=== PATIENT | female | born 1990 | race Caucasian/White ===

== ENCOUNTER 2017-05-15 13:50 | Inpatient (IN) | payer OTHER ==
[2017-05-15] MEDS ORDERED: Tranexamic Acid 1,000 MG in Sodium Chloride 0.9% 100 ML IV PRN (14:34)
[2017-05-15] MEDS ORDERED: Lactated Ringers 500 ML IV ONE (14:34)
[2017-05-15] MEDS ORDERED: Carboprost Tromethamine 250 MCG/1 ML Amp IM PRN (14:34)
[2017-05-15] MEDS ORDERED: Misoprostol 50 MCG (1/2 of 100 MCG) Tab VAG PRN (14:34)
[2017-05-15] MEDS ORDERED: Acetaminophen 325 MG Tab PO PRN (14:34)
[2017-05-15] MEDS ORDERED: Methylergonovine 0.2 MG/1 ML Amp IM PRN (14:34)
[2017-05-15] MEDS ORDERED: Ondansetron 4 MG/2 ML SDV IV PRN (14:34)
[2017-05-15] MEDS ORDERED: Misoprostol 400 MCG (4 X 100 MCG TAB) RECTAL PRN (14:34)
[2017-05-15] MEDS ORDERED: Lidocaine 1% 30 ML SDV INJECT PRN (14:34)
[2017-05-15] MEDS ORDERED: Sodium Chloride 0.9% 10 ML Syringe FLUSH PRN (14:34)
[2017-05-15] MEDS ORDERED: Lactated Ringers 1,000 ML IV SCH (14:45)
[2017-05-15] MEDS ORDERED: Bupivacaine 0.75%/D5W 2 ML Amp ONE (22:40)
[2017-05-15] MEDS ORDERED: fentaNYL 100 MCG/2 ML SDV ONE (22:40)
[2017-05-15] MEDS ORDERED: EPINEPHrine 1 MG/ML SDV ONE (22:41)
[2017-05-15] MEDS ORDERED: Oxytocin/Normal Saline 30 UNIT/500 ML BAG IV SCH (23:00)
--- NOTE | 2017-05-15 23:08 | PCM.SN ---
- Free Text/Narrative Note: Intrathecal. Sitting position, sterile prep and drape. 1% lidocaine w bicarb for skinwheal to L3 L4 interspace, introducer, 25 ga pencan x 2. Pos CSF, neg heme, neg parasthesia. 1:1000 pf epi wash, 15 mcg pf sufenta, 35 mcg pf fentanyl , 0.4 ml pf ns and 6 mg of 0.75% pf bupivacaine injected after CSF aspiration. Pt to L lateral side. Procedure time 2240 to 2320.
[2017-05-16] MEDS ORDERED: Benzocaine/Menthol 20%-0.5% Spray 56 GM Canister TOP PRN (01:48)
[2017-05-16] MEDS ORDERED: Zolpidem 5 MG Tab PO PRN (01:48)
[2017-05-16] MEDS ORDERED: Simethicone 80 MG Tab.Chew PO PRN (01:48)
[2017-05-16] MEDS ORDERED: Oxytocin 10 Units/1 ML SDV IM PRN (01:48)
--- NOTE | 2017-05-16 02:01 | PCM.DEL ---
L & D Note - Delivery Note Provider: Tonny Ragland Vacuum Extractor Progress Note - Alternative Labor Strategies Considered Alternative Labor Strategies Considered:: Reports: Yes Strategies Considered:: Reports: Contraction Intensity Adequate, Position Changes Used to Facilitate Rotation & Descent, Empty Bladder, Rest Indications Considered:: Reports: Yes Indications:: Reports: Suspicion of Immediate or Potential Compromise Time Out:: Reports: Yes - Patient Prepared Patient Prepared:: Reports: Yes Informed Consent:: Reports: Yes, Verbal Risks: Reports: Yes Risks Include:: Reports: Laceration, Shoulder Dystocia, Maternal Injury, Other Anesthesia/Analgesia Adequate:: Reports: Yes - Probability of Success High Probability of Success:: Reports: Yes Weight Estimated:: Reports: AGA Patient Diabetic:: Reports: No Pelvis Adequate:: Reports: Yes Asynclitic:: Reports: No - Application Time Maximum Application Time & Number of Pop-Offs Predetermined:: Reports: Yes Number of Times Cup Disengaged:: 0 (see nurses notes for further details) Vacuum Extraction: Successful - Exit Strategy Exit strategy available:: Reports: Yes and resuscitation teams readily available:: Reports: Yes (used smaller kiwi vacuume) - Patient Data Vitals - Most Recent: Last Vital Signs Temp 99.0 F 05/15/17 22:35 Pulse 90 05/15/17 22:35 Resp 14 05/15/17 22:35 BP 139/84 05/15/17 22:35 Pulse Ox Weight - Most Recent: 78.018 kg I&O - Last 24 Hours: Intake & Output 05/15/17 05/15/17 05/16/17 14:59 22:59 06:59 Intake Total 1999 Balance 1999 Med Orders - Current: Current Medications Acetaminophen (Tylenol) 650 mg PO Q4H PRN PRN Reason: Pain (Mild 1-3) and fever Acetaminophen (Tylenol) 650 mg PO Q4H PRN PRN Reason: Pain/Fever Benzocaine/Menthol (Dermoplast Pain Relief [place]) 0 gm TOP Q4H PRN PRN Reason: Perineal comfort measures Carboprost Tromethamine (Hemabate Ds) 250 mcg IM ASDIRECTED PRN PRN Reason: HEMORRHAGE Docusate Sodium (Colace) 100 mg PO BID PRN PRN Reason: Constipation Ferrous Sulfate (Ferrous Sulfate) 325 mg PO WITHBREAKFAST SUNDAY Lactated Ringer's (Ringers, Lactated) 1,000 mls @ 125 mls/hr IV ASDIRECTED SUNDAY Last Admin: 05/15/17 23:13 Dose: 125 mls/hr Tranexamic Acid 1,000 mg/ (Sodium Chloride) 110 mls @ 660 mls/hr IV ONETIME PRN PRN Reason: Bleeding Oxytocin/Sodium Chloride (Pitocin In Ns 30 Unit/500 Ml) 30 unit in 500 mls @ 500 mls/hr IV TITRATE SUNDAY; 500 MUNITS/MIN PRN Reason: Protocol Last Titration: 05/16/17 01:52 Dose: 250 mls/hr Ibuprofen (Motrin) 800 mg PO Q8H PRN PRN Reason: Mild Pain or Fever Lidocaine HCl (Xylocaine-Mpf 1%) 10 ml INJECT ASDIRECTED PRN PRN Reason: Perineal Repair Methylergonovine Maleate (Methergine) 0.2 mg IM ASDIRECTED PRN PRN Reason: Hemorrhage Misoprostol (Cytotec) 800 mcg RECTAL ASDIRECTED PRN PRN Reason: Hemorrhage Misoprostol (Cytotec) 50 mcg VAG Q4H PRN PRN Reason: cervical ripening Last Admin: 05/15/17 14:45 Dose: 50 mcg Ondansetron HCl (Zofran) 4 mg IV Q4H PRN PRN Reason: Nausea/Vomiting Last Admin: 05/15/17 22:31 Dose: 4 mg Oxytocin (Pitocin) 10 unit IM ONETIME PRN PRN Reason: Bleeding Prenat Multivit/[place]/Iron/Folic Ac ( Plus Iron) 1 each PO DAILY SUNDAY Simethicone (Simethicone) 80 mg PO Q4H PRN PRN Reason: Gas Sodium Chloride (Saline Flush) 10 ml FLUSH ASDIRECTED PRN PRN Reason: Keep Vein Open Zolpidem Tartrate (Ambien) 5 mg PO BEDTIME PRN PRN Reason: Insomnia Discontinued Medications Bupivacaine HCl/Dextrose (Marcaine 0.75% Spinal) Confirm Administered Dose 2 ml .ROUTE .STK-MED ONE Stop: 05/15/17 22:41 Epinephrine HCl (Adrenalin) Confirm Administered Dose 1 mg .ROUTE .STK-MED ONE Stop: 05/15/17 22:42 Fentanyl (Sublimaze) Confirm Administered Dose 100 mcg .ROUTE .STK-MED ONE Stop: 05/15/17 22:41 Lactated Ringer's (Ringers, Lactated) 500 mls @ 500 mls/hr IV .BOLUS ONE Stop: 05/15/17 15:33 Last Admin: 05/15/17 22:13 Dose: 500 mls/hr Lidocaine HCl (Xylocaine-Mpf 1%) Confirm Administered Dose 5 ml .ROUTE .STK-MED ONE Stop: 05/15/17 22:42 Sodium Bicarbonate (Sodium Bicarbonate 4.2%) Confirm Administered Dose 5 meq .ROUTE .STK-MED ONE Stop: 05/15/17 22:42 Sufentanil Citrate (Sufenta) Confirm Administered Dose 50 mcg .ROUTE .STK-MED ONE Stop: 05/15/17 22:42 - Problem List Review Problem List Initiated/Reviewed/Updated: Yes - My Orders Last 24 Hours: My Active Orders 05/15/17 14:34 Patient Status [ADT] Routine Communication Order [RC] ASDIRECTED Notify Provider Vital Signs OB [RC] ASDIRECTED Notify Provider [RC] PRN Notify Provider [RC] PRN Notify Provider [RC] STAT Peripheral IV Care [RC] , Up ad Dianna [RC] ASDIRECTED Up ad Dianna [RC] PER UNIT ROUTINE Vaginal Exam [RC] PRN Vital Signs [RC] PER UNIT ROUTINE Vital Signs [RC] PER UNIT ROUTINE Acetaminophen [Tylenol] 650 mg PO Q4H PRN Acetaminophen [Tylenol] 650 mg PO Q4H PRN Carboprost Tromethamine [Hemabate DS] 250 mcg IM ASDIRECTED PRN Lidocaine 1% [Xylocaine-MPF 1%] 10 ml INJECT ASDIRECTED PRN Methylergonovine [Methergine] 0.2 mg IM ASDIRECTED PRN Misoprostol [Cytotec] 50 mcg VAG Q4H PRN Misoprostol [Cytotec] 800 mcg RECTAL ASDIRECTED PRN Ondansetron [Zofran] 4 mg IV Q4H PRN Sodium Chloride 0.9% [Saline Flush] 10 ml FLUSH ASDIRECTED PRN Tranexamic Acid [Cyklokapron] 1,000 mg Sodium Chloride 0.9% [Normal Saline] 100 ml IV ONETIME Peripheral IV Insertion Adult [OM.PC] Urgent Saline Lock Insert [OM.PC] Routine Resuscitation Status Routine 05/15/17 14:35 Pump Management, Intrathecal [RC] ASDIRECTED 05/15/17 14:45 Lactated Ringers [Ringers, Lactated] 1,000 ml IV ASDIRECTED 05/15/17 23:00 Oxytocin/Normal Saline [Pitocin in NS 30 UNIT/500 ML] 30 unit in 500 ml IV TITRATE 05/15/17 Dinner Regular Diet [DIET] 05/16/17 01:48 Benzocaine/Menthol [Dermoplast Pain Relief [place]] See Dose Instructions TOP Q4H PRN Docusate Sodium [Colace] 100 mg PO BID PRN Ibuprofen [Motrin] 800 mg PO Q8H PRN Oxytocin [Pitocin] 10 unit IM ONETIME PRN Simethicone 80 mg PO Q4H PRN Zolpidem [Ambien] 5 mg PO BEDTIME PRN Assess Lochia [WOMSER] Per Unit Routine Assess Uterine Involution [WOMSER] Per Unit Routine Breast Pump [WOMSER] Per Unit Routine Ice Therapy [OM.PC] Per Unit Routine Perineal Care [OM.PC] Per Unit Routine Saline Lock Insert [OM.PC] Urgent Sitz Bath [OM.PC] Per Unit Routine 05/16/17 01:51 Patient Status Manage Transfer [TRANSFER] Routine 05/16/17 07:00 CBC W/O DIFF,HEMOGRAM [HEME] Routine 05/16/17 08:00 Ferrous Sulfate 325 mg PO WITHBREAKFAST 05/16/17 09:00 Vit with Ca/FA/Iron [ Plus Iron] 1 each PO DAILY 05/16/17 Breakfast Regular Diet [DIET] 05/18/17 06:00 CBC W/O DIFF,HEMOGRAM [HEME] Routine
[2017-05-16] MEDS: Ibuprofen 800 MG Tab PO PRN ×3 (02:45→21:43)
[2017-05-16] MEDS: Prenatal Multivitamin with Calcium/Folic Acid/Iron Tab PO SCH (09:11)
[2017-05-16] MEDS: Ferrous Sulfate 325 MG Tab PO SCH (09:11)
[2017-05-16] MEDS: Docusate Sodium 100 MG Cap PO PRN ×2 (09:12→21:43)
--- NOTE | 2017-05-16 11:08 | DEL ---
DATE: 05/16/2017 PREOPERATIVE DIAGNOSES: 1. Intrauterine at 39-3/7 weeks, confirmed with 12-6/7 week ultrasound. 2. Gestational hypertension. 3. New-onset intermittent severe headaches, none upon admission. 4. Group B Streptococcus negative. 5. 3, para 2-0-0-2. 6. Recurrent decelerations. POSTOPERATIVE DIAGNOSES: 1. Intrauterine at 39-3/7 weeks, confirmed with 12-6/7 week ultrasound, delivered. 2. Gestational hypertension. 3. New-onset intermittent severe headaches, none upon admission. 4. Group B Streptococcus negative. 5. 3, para 2-0-0-2. 6. Recurrent decelerations. 7. Prolonged third stage of labor. 8. hemorrhage with an estimated blood loss of 650 mL. 9. Nuchal cord x1, reduced bluntly with delivery. PROCEDURE PERFORMED: NST followed by Cytotec x1 and artificial rupture of membranes on 05/15/2017 with subsequent vacuum-assisted vaginal delivery on 05/16/2017. Procedure was performed by Tonny Ragland MD. ROUTE AIDE: ISI FariaIII. ANESTHESIA/ANALGESIA: The patient did receive an intrathecal in the first stage of labor. ESTIMATED BLOOD LOSS: 650 mL. FINDINGS: Female, score of 7 and 9, weighing 8 pounds 9 ounces. SUMMARY OF EVENTS: The patient is a 26-year-old, G3, P2-0-0-2 intrauterine at 39-2/7 weeks on date of admission and 39-3/7 weeks on date of delivery who presented with new-onset headaches that were severe in nature and intermittent with gestational versus transient hypertension. Preeclampsia labs were done and noted to be negative. The patient then qualified for gestational hypertension diagnosis and was followed closely thereafter. She underwent the above procedures, including Cytotec x1 and artificial rupture of membranes. She was then around 5 cm dilated and subsequently received an intrathecal in the first stage of labor. Thereafter, she was found to be complete, and there were concerns with heart tones. The patient had some feeling with some urge to push. Subsequently, room was set up and started pushing with contractions. Positional changes ensued during this as well as using the squat bar as well. With contractions, there were noted to be some recurrent decelerations. They worsened in the second stage of labor. Bladder was catheterized with Mejia-type catheter yielding clear urine. Subsequently with recurrent decelerations that were worsening as well as vertex now seen splitting the labia, I did discuss with her and her male partner risks, benefits, alternatives, complications, use of vacuum for assisting with vaginal delivery. They understood and agreed and wished to proceed. Subsequently with the next contraction, with patient pushing, vertex was seen splitting the labia. The small cup kiwi was applied, pumped up to the green and with gentle pulling, no more than into the red zone, further descent was noted. Subsequently, vacuum was disengaged/removed, and vertex was delivered in an HARPER presentation. Nuchal cord x1 was noted and reduced bluntly with delivery. Subsequently, anterior and posterior shoulder delivered with minimal difficulty as well as the rest of the infant. Mouth and nares were suctioned. Cord was doubly clamped and cut, and infant was resuscitated on mother's abdomen. Then, approximately 10 mL of cord blood was obtained for labs. Placenta then delivered with gentle cord traction and fundal massage at 31 minutes after delivery qualifying for prolonged third stage of labor. Immediately, thereafter fundal massage ensued. There was noted to be a hemorrhage with an EBL 650 mL. Pitocin was increased, and bleeding decreased significantly thereafter. Perineum, vagina, perirectal areas were then examined without any tears or lacerations. Mother and are currently stable at the time of dictation. [facility] /[id number]
[2017-05-16] MEDS ORDERED: Bupivacaine 0.75%/D5W 2 ML Amp ONE (11:13)
[2017-05-16] MEDS ORDERED: fentaNYL 100 MCG/2 ML SDV ITHECAL ONE (11:13)
[2017-05-16] MEDS ORDERED: EPINEPHrine 1 MG/ML SDV ONE (11:13)
--- NOTE | 2017-05-16 11:17 | PN ---
DATE: 05/15/2017 SUBJECTIVE: The patient's contractions are getting stronger. Rated 6 to 7/10, coming every couple of minutes. OBJECTIVE: heart tones in the 130s to 140s range and accelerations noted. Tocometer reveals contractions every 1.5 to 2 minutes. Vaginal exam reveals her to be 3 cm, 75% effaced, -1 to -2 station, vertex suspected. Artificial rupture of membranes done after discussion with the patient yielding clear fluid. ASSESSMENT: 1. Intrauterine at 39 and 2/7 weeks with gestational hypertension, with new-onset intermittent headaches. 2. Group B Streptococcus negative. 3. 3, para 2-0-0-2. PLAN: As her blood pressures are not in the severe range, her HELLP labs have been negative from the clinic, we will continue to follow clinically and closely and proceed with augmentation/induction as above. The patient understands and agrees with the above treatment plan. [facility] /[id number]
--- NOTE | 2017-05-16 11:39 | OBOUT ---
DATE: 05/15/2017 DATE AND TIME OF NST: 05/15/2017, time 1401 to 1421. REASON FOR NST: 1. Intrauterine at 39-2/7 weeks. 2. Gestational hypertension versus transient hypertension. 3. New-onset headaches. 4. Group B streptococcus negative. 5. G3, P2-0-0-2. NST INTERPRETATION: During this time period, heart tone baseline is approximately 130 to 135 and there are at least two 15 x 15 beats per minute accelerations making this strip reactive. It is also noted to be reassuring. Tocometer reveals no evidence of contractions. ASSESSMENT: 1. Nonstress test, reactive and reassuring. 2. Tocometer without contractions. PLAN: I did discuss with the patient with her new-onset headaches and new-onset hypertension, suspect gestational hypertension versus preeclampsia by definition. Therefore shared decision as she is over 39 weeks was made in regard to proceeding with Cytotec-type induction. I did discuss risks, benefits, alternatives as well as complications of this. Verbal consent has been obtained. Written consent will be obtained prior to usage. Please see redIT notes for H and P. Review of systems was fully reviewed per this note as well as records were called for, reviewed, and supplemented by EPIC notes. [facility] /[id number]
[2017-05-16] MEDS: Acetaminophen 325 MG Tab PO PRN (16:56)
[2017-05-17] MEDS: Acetaminophen 325 MG Tab PO PRN (03:20)
[2017-05-17] MEDS: Ibuprofen 800 MG Tab PO PRN (06:45)
[2017-05-17] MEDS: Docusate Sodium 100 MG Cap PO PRN (08:52)
[2017-05-17] MEDS: Ferrous Sulfate 325 MG Tab PO SCH (08:53)
[2017-05-17] MEDS: Prenatal Multivitamin with Calcium/Folic Acid/Iron Tab PO SCH (08:53)
[2017-05-17 10:05] VITALS: BP 129/72
--- NOTE | 2017-05-17 11:42 | PCM.PNPP ---
- General Info Date of Service: 05/17/17 (PPD # 1 S/P ) Functional Status: Reports: Pain Controlled, Tolerating Diet, Ambulating, Urinating - Review of Systems General: Reports: No Symptoms HEENT: Reports: No Symptoms Pulmonary: Reports: No Symptoms Cardiovascular: Reports: No Symptoms Gastrointestinal: Reports: No Symptoms Genitourinary: Reports: No Symptoms Musculoskeletal: Reports: No Symptoms Skin: Reports: No Symptoms Neurological: Reports: No Symptoms Psychiatric: Reports: No Symptoms - General Info Date of Service: 05/17/17 (PPD # 1 S/P ) - Patient Data Vital Signs - Most Recent: Last Vital Signs Temp 98.3 F 05/17/17 08:00 Pulse 72 05/17/17 08:00 Resp 18 05/17/17 08:00 BP 129/72 05/17/17 08:00 Pulse Ox 99 05/17/17 08:00 Weight - Most Recent: 172 lb Med Orders - Current: Current Medications Acetaminophen (Tylenol) 650 mg PO Q4H PRN PRN Reason: Pain (Mild 1-3) and fever Last Admin: 05/17/17 03:20 Dose: 650 mg Acetaminophen (Tylenol) 650 mg PO Q4H PRN PRN Reason: Pain/Fever Benzocaine/Menthol (Dermoplast Pain Relief [place]) 0 gm TOP Q4H PRN PRN Reason: Perineal comfort measures Last Admin: 05/16/17 02:44 Dose: 1 spray Carboprost Tromethamine (Hemabate Ds) 250 mcg IM ASDIRECTED PRN PRN Reason: HEMORRHAGE Docusate Sodium (Colace) 100 mg PO BID PRN PRN Reason: Constipation Last Admin: 05/17/17 08:52 Dose: 100 mg Ferrous Sulfate (Ferrous Sulfate) 325 mg PO WITHBREAKFAST COUNT INCLUDES THE [facility] Last Admin: 05/17/17 08:53 Dose: 325 mg Lactated Ringer's (Ringers, Lactated) 1,000 mls @ 125 mls/hr IV ASDIRECTED SUNDAY Last Admin: 05/15/17 23:13 Dose: 125 mls/hr Tranexamic Acid 1,000 mg/ (Sodium Chloride) 110 mls @ 660 mls/hr IV ONETIME PRN PRN Reason: Bleeding Oxytocin/Sodium Chloride (Pitocin In Ns 30 Unit/500 Ml) 30 unit in 500 mls @ 500 mls/hr IV TITRATE SUNDAY; 500 MUNITS/MIN PRN Reason: Protocol Last Titration: 05/16/17 04:50 Dose: Infused Ibuprofen (Motrin) 800 mg PO Q8H PRN PRN Reason: Mild Pain or Fever Last Admin: 05/17/17 06:45 Dose: 800 mg Lidocaine HCl (Xylocaine-Mpf 1%) 10 ml INJECT ASDIRECTED PRN PRN Reason: Perineal Repair Methylergonovine Maleate (Methergine) 0.2 mg IM ASDIRECTED PRN PRN Reason: Hemorrhage Misoprostol (Cytotec) 800 mcg RECTAL ASDIRECTED PRN PRN Reason: Hemorrhage Misoprostol (Cytotec) 50 mcg VAG Q4H PRN PRN Reason: cervical ripening Last Admin: 05/15/17 14:45 Dose: 50 mcg Ondansetron HCl (Zofran) 4 mg IV Q4H PRN PRN Reason: Nausea/Vomiting Last Admin: 05/15/17 22:31 Dose: 4 mg Oxytocin (Pitocin) 10 unit IM ONETIME PRN PRN Reason: Bleeding Prenat Multivit/[place]/Iron/Folic Ac ( Plus Iron) 1 each PO DAILY SUNDAY Last Admin: 05/17/17 08:53 Dose: 1 each Simethicone (Simethicone) 80 mg PO Q4H PRN PRN Reason: Gas Sodium Chloride (Saline Flush) 10 ml FLUSH ASDIRECTED PRN PRN Reason: Keep Vein Open Zolpidem Tartrate (Ambien) 5 mg PO BEDTIME PRN PRN Reason: Insomnia Discontinued Medications Bupivacaine HCl/Dextrose (Marcaine 0.75% Spinal) Confirm Administered Dose 2 ml .ROUTE .STK-MED ONE Stop: 05/15/17 22:41 Last Admin: 05/16/17 09:34 Dose: Not Given Bupivacaine HCl/Dextrose (Marcaine 0.75% Spinal) 0.8 ml .XX .STK-MED ONE Stop: 05/16/17 11:14 Epinephrine HCl (Adrenalin) Confirm Administered Dose 1 mg .ROUTE .STK-MED ONE Stop: 05/15/17 22:42 Last Admin: 05/16/17 09:34 Dose: Not Given Epinephrine HCl (Adrenalin) 1 mg .XX .STK-MED ONE Stop: 05/16/17 11:14 Fentanyl (Sublimaze) Confirm Administered Dose 100 mcg .ROUTE .STK-MED ONE Stop: 05/15/17 22:41 Last Admin: 05/16/17 09:34 Dose: Not Given Fentanyl (Sublimaze) 35 mcg ITHECAL .STK-MED ONE Stop: 05/16/17 11:14 Lactated Ringer's (Ringers, Lactated) 500 mls @ 500 mls/hr IV .BOLUS ONE Stop: 05/15/17 15:33 Last Admin: 05/15/17 22:13 Dose: 500 mls/hr Lidocaine HCl (Xylocaine-Mpf 1%) Confirm Administered Dose 5 ml .ROUTE .STK-MED ONE Stop: 05/15/17 22:42 Last Admin: 05/16/17 09:34 Dose: Not Given Lidocaine HCl (Xylocaine-Mpf 1%) 1 ml .XX .STK-MED ONE Stop: 05/16/17 11:14 Sodium Bicarbonate (Sodium Bicarbonate 4.2%) Confirm Administered Dose 5 meq .ROUTE .STK-MED ONE Stop: 05/15/17 22:42 Last Admin: 05/16/17 09:34 Dose: Not Given Sufentanil Citrate (Sufenta) Confirm Administered Dose 50 mcg .ROUTE .STK-MED ONE Stop: 05/15/17 22:42 Last Admin: 05/16/17 09:34 Dose: Not Given Sufentanil Citrate (Sufenta) 15 mcg ITHECAL .STK-MED ONE Stop: 05/16/17 11:14 - Interaction Infant Disposition, : [place] in Room with Family Infant Interaction: Holding Infant Feeding: Bottle Fed Infant Support Person: - Recovery Exam Fundal Tone: Firm Fundal Level: 2 Fingerbreadths Below Umbilicus Fundal Placement: Midline Lochia Amount: Small Lochia Color: Rubra/Red Perineum Description: Intact, Minimal Bruising/Swelling Episiotomy/Laceration: Approximated Bladder Status: Voiding Urinary Elimination: Voided Other Urinary Elimination, : lg void c/fundal massage. - Exam General: Alert, Oriented, Cooperative, No Acute Distress HEENT: Pupils Equal, Pupils Reactive, EOMI, Mucous Membr. Moist/[place] Neck: Supple Lungs: Clear to Auscultation, Normal Respiratory Effort Cardiovascular: Regular Rate, Regular Rhythm, No Murmurs GI/Abdominal Exam: Normal Bowel Sounds, Soft, Non-Tender, No Organomegaly Extremities: Normal Inspection, Normal Range of Motion, Non-Tender, No Pedal Edema Skin: Warm, Dry, Intact Neurological: No New Focal Deficit, Normal Gait, Normal Speech Psy/Mental Status: Alert, Normal Affect, Normal Mood - Problem List Review Problem List Initiated/Reviewed/Updated: Yes - Assessment Assessment:: PPD # 1 S/P Doing well - Plan Plan:: Discharge to home Follow-up with Dr. Ragland at check-up Tylenol and Ibuprofen for pain as needed.
--- NOTE | 2017-05-18 06:23 | DISCH ---
INDICATION FOR ADMISSION: Ms. Conrad is a 26-year-old, 3, para 2 female at 39 and 3/7 weeks' gestation, who reported to Labor and Delivery with gestational hypertension with new onset of intermittent severe headaches. She was brought in for Cytotec cervical ripening and had artificial rupture of membranes with clear fluid. She tolerated her labor quite well. Once she got to complete and started pushing, she did have recurrent decelerations, so a vacuum-assisted vaginal delivery occurred, OA of a viable female , weighing 8 pounds 9 ounces, 20-3/4 inches long with scores of 7 at 1 minute, 9 at 5 minutes. She did have intrathecal anesthesia for pain control. There was a nuchal cord x1. She had hemorrhage of approximately 650 mL of blood loss. She recovered quite well. She was afebrile. Vital signs were stable. She tolerated her hospital stay quite well. She did bottle-feed, and there were no complications that occurred throughout her hospital stay. She had minimal lochia. She ambulated well and tolerated her diet well. She was discharged to home on day #1. LABORATORY AND DIAGNOSTIC STUDIES: On 05/16/2017, WBC 21.2, hemoglobin 11.1, hematocrit 31.8, platelet count 192,000. DISCHARGE INSTRUCTIONS: 1. Discharged to home. 2. Follow up with Dr. Ragland next week with . 3. Follow up for 6-week checkup or sooner if problems develop. 4. No douching, tampons, intercourse for 6 weeks. 5. Discharge instructions including activity, followup, medications, diet, and wound care were discussed with the patient. She understands these and is willing to comply with these. 6. Ibuprofen 600 to 800 mg every 6 to 8 hours p.r.n. for pain. 7. Tylenol p.r.n. for pain. 8. vitamin and iron daily. DISCHARGE DIAGNOSES: 1. A 39 and 3/7 weeks' intrauterine . 2. Gestational hypertension. 3. New-onset intermittent severe headaches, none upon admission. 4. Group B streptococcus negative. 5. Recurrent decelerations in 2nd stage of labor. 6. Vacuum-assisted vaginal delivery of a viable female , weighing 8 pounds 9 ounces, 20-3/4 inches long with scores of 7 at 1 minute, 9 at 5 minutes. 7. Prolonged 3rd stage labor. 8. hemorrhage with EBL of 650 mL. 9. Nuchal cord x1. 10.Intrathecal anesthesia. 11.Acute anemia secondary to blood loss. [facility] /[id number]
== END 2017-05-17 13:00 | disposition home or self-care (01) | DRG 774 ==
LOC: DL.OBCHECK 13:50 → DL.OB 14:45 → OBSVTOIN 05-16 01:05
PROVIDERS: ADMIT Family Medicine; ATTEND Family Medicine
PROC: 10D07Z6 Extraction of Products of Conception, Vacuum, Via Natural or Artificial Opening (ICD-10-PCS; principal; 2017-05-16)
PROC: 3E0P7VZ Introduction of Hormone into Female Reproductive, Via Natural or Artificial Opening (ICD-10-PCS; 2017-05-16)
PROC: 10907ZC Drainage of Amniotic Fluid, Therapeutic from Products of Conception, Via Natural or Artificial Opening (ICD-10-PCS; 2017-05-16)
PROC: 00HU33Z Insertion of Infusion Device into Spinal Canal, Percutaneous Approach (ICD-10-PCS; 2017-05-16)
PROC: 3E0R3BZ Introduction of Anesthetic Agent into Spinal Canal, Percutaneous Approach (ICD-10-PCS; 2017-05-16)
DX: O13.4 Gestational [pregnancy-induced] hypertension without significant proteinuria, complicating childbirth (principal); O72.1 Other immediate postpartum hemorrhage; O76 Abnormality in fetal heart rate and rhythm complicating labor and delivery; O63.9 Long labor, unspecified; O69.81X0 Labor and delivery complicated by cord around neck, without compression, not applicable or unspecified; Z3A.39 39 weeks gestation of pregnancy; Z37.0 Single live birth; O99.02 Anemia complicating childbirth
CPT/HCPCS: 36415; 59025; 59409; 85025; 85027; A9270-GY; J0171; J2405; J2590; J3010; J7120